=== PATIENT | female | born 1985 | race Caucasian/White ===

== ENCOUNTER → 2025-04-07 | Outpatient (CLI) | payer OTHER, SELFPAY ==
--- NOTE | 2025-04-07 08:35 | US_ITS ---
PROCEDURE: ABDOMEN LIMITED 04/07/2025 REASON FOR EXAM: RIGHT UPPER QUADRANT PAIN TECHNIQUE: Procedure Code: USABDL Modality: US Procedure: ABDOMEN LIMITED COMPARISON: None FINDINGS: Liver: Diffusely echogenic suggesting fatty infiltration. Hepatomegaly. The liver measures 19.6 cm. Gallbladder: Stone filled gallbladder. Sludge is seen within the gallbladder lumen. The gallbladder wall is not thickened. It measures 2.5 mm. Common bile duct: Normal measuring 3.9 mm . Pancreas: Normal Other: Visualized portions of the right kidney are unremarkable. No right upper quadrant ascites. US/Abdomen Limited IMPRESSION: Hepatomegaly and diffuse fatty infiltration of the liver. Stone filled gallbladder. Sludge is also seen in the gallbladder lumen. Reading Location: [place] [address]
--- OUTSIDE RECORDS SUMMARY | 2025-04-07 09:09 | XMS RPT_ITS | CCD ---
Author Organization [place] [employer] [facility] Care Team Providers Care Technical Advisor Name Role Phone Mariela Hernandez Referring Unavailable Mariela Hernandez Attending Unavailable Mariela Hernandez Primary Care Unavailable Problems Problem Classification Problem Date Documented Da te Episodic/Chronic Abdominal pain (1 source) Right upper quadrant pain; Translations: [Right upper quadrant pain] Onset: 03-31-2025 Episodic Results Test Name Value Interpretation Reference Range Facil itcleve CNOVon 04-26-2019 CNOV Office Visit (UCWSTR ) HOA BOWERS ([id number]) 1985 F Date Time Provider Department 04/26/19 12:15 PM ELVIR[facility] During your visit today, we recorded the following information about you: Temperature Pulse Respiration Blood pressure 98.3 degrees 76/minute 16/minute 96/64 Weight Last Period 86.6 kg 01/17/19 Elvira Arciniega MD 04/26/2019 12:55 PM Signed Patient presents with: Nausea: N/V, dizziness X2 wks HPI: Feeling dizzy for a couple weeks, worse this week. Spinning sensation. Feels like falling with bending or moving too fast. Has had a similar episode before dx as inner ear. Positive symptoms: nausea, vomiting, headache bilateral temples (throbbing, usually mild, was severe), mild nasal congestion, Negative symptoms: near syncope, double vision/change in vision, numbness, weakness, head injury, Cough, Fever, diarrhea, OTC: advil for headache She has had other similar headaches this summer. PAST MEDICAL HISTORY Diagnosis Date - NEGATIVE MEDICAL HISTORY PAST SURGICAL HISTORY Procedure Laterality Date - NONE MEDICATIONS: No current outpatient medications on file. No current facility-administered medications for this visit. ALLERGIES: ALLERGIES No Known Allergies VITALS: BP 96/64 Pulse 76 Temp 36.8 ?C (98.3 ?F) Resp 16 Wt 86.6 kg (191 lb) LMP 01/17/2019 SpO2 98% PHYSICAL EXAM: GEN: Pleasant, no acute distress, obese, Alevism dress, accompanied by her HEENT: PERRL, right eye esotropia, conjunctiva clear Ears: canals clear. TMs without erythema, bulge, or effusion Sinuses: pressure over sinuses Throat: moist mucous membranes, no erythema, no exudate Neck: supple, no thyromegaly, no lymphadenopathy HEART: regular rate and rhythm, no murmurs LUNGS: clear to auscultation, no wheezes or crackles, no increased WOB NEURO: Alert and oriented to person, place, and time. CN II-XII intact. DTR 2+/4. Normal strength. Normal gait. No tremor. ASSESSMENT/PLAN: 1. 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 Светлана Halpike symptomatic with right ear down. Eply maneuvers performed. - MECLIZINE 25 MG TABLET PRN Instructed to proceed to the ER for further evaluation if she has worsening headache, vision change, numbness, weakness, or worsening dizziness. Elvira Arciniega MD Referring Provider: SELF [[id number]] Allergies As of Date: 04/26/2019 (No Known Allergies) Date Reviewed: 04/26/2019 Reviewed by: Paige Rebollar MA - Fully Assessed Reason for Visit: Nausea [70] Cmt: N/V, dizziness X2 wks Primary Visit Diagnosis:Vertigo [R42] Order(s):meclizine (ANTIVERT) 25 mg tabTake 1 tablet by mouth every 6 hours as needed (dizziness) for up to 15 days.Disp: 20 tabletRfl: 0 Prescriptions as of 04/26/2019 Sig: MECLIZINE 25 MG TABLET Take 1 tablet by mouth every * Problem List As Of Date: 04/26/2019 (None) Prescriptions ordered this encounter Disp Refills Start End MECLIZINE 25 MG TABLET 20 t* 0 04/26/2019 05/11/2019 Route: ORAL Sig: Take 1 tablet by mouth every 6 hours as needed (dizziness) for up to 15 days. Encounter Status:Closed by ELVIRA ARCINIEGA MD on 04/26/19 Normal [facility] PROGRESSon 04-26-2019 PROGRESS HNO ID: [id number] Author: Elviar Arciniega Service: ? Author Type: Physician Type: Progress Notes Filed: 04/26/2019 12:55 PM Note Text: Patient presents with: Nausea: N/V, dizziness X2 wks HPI: Feeling dizzy for a couple weeks, worse this week. Spinning sensation. Feels like falling with bending or moving too fast. Has had a similar episode before dx as inner ear. Positive symptoms: nausea, vomiting, headache bilateral temples (throbbing, usually mild, was severe), mild nasal congestion, Negative symptoms: near syncope, double vision/change in vision, numbness, weakness, head injury, Cough, Fever, diarrhea, OTC: advil for headache She has had other similar headaches this summer. PAST MEDICAL HISTORY Diagnosis Date - NEGATIVE MEDICAL HISTORY PAST SURGICAL HISTORY Procedure Laterality Date - NONE MEDICATIONS: No current outpatient medications on file. No current facility-administered medications for this visit. ALLERGIES: ALLERGIES No Known Allergies VITALS: BP 96/64 Pulse 76 Temp 36.8 ?C (98.3 ?F) Resp 16 Wt 86.6 kg (191 lb) LMP 01/17/2019 SpO2 98% PHYSICAL EXAM: GEN: Pleasant, no acute distress, obese, Alevism dress, accompanied by her HEENT: PERRL, right eye esotropia, conjunctiva clear Ears: canals clear. TMs without erythema, bulge, or effusion Sinuses: pressure over sinuses Throat: moist mucous membranes, no erythema, no exudate Neck: supple, no thyromegaly, no lymphadenopathy HEART: regular rate and rhythm, no murmurs LUNGS: clear to auscultation, no wheezes or crackles, no increased WOB NEURO: Alert and oriented to person, place, and time. CN II-XII intact. DTR 2+/4. Normal strength. Normal gait. No tremor. ASSESSMENT/PLAN: 1. 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 [place] Halpike symptomatic with right ear down. Eply maneuvers performed. - MECLIZINE 25 MG TABLET PRN Instructed to proceed to the ER for further evaluation if she has worsening headache, vision change, numbness, weakness, or worsening dizziness. Elvira Arciniega MD Normal [facility] Encounters Encounter Date Encounter Type Care Provider Facility Start: 04-07-2025 ambulatory Mariela Hernandez Facility:[facility] Payers Date Payer Category Payer Self-pay 2025 Unknown [id number] Unknown [id number] Summary Purpose Family History No Family History Records FoundNo Family History Records Found Advance Directives No Advanced Directives Records FoundNo Advanced Directives Records Found Additional Source Comments INFORMATION SOURCE (unrecogn ized section and content) DATE CREATED AUTHOR 04/26/2019 [facility] DATE CREATED AUTHOR AUTHOR'S ORGANIZ ATION 04/02/2025 [facility] FOR RECORDS PERTAINING TO PATIENTS WHO ARE OR HAVE BEEN ENROLLED IN A CHEMICAL DEPENDENCY/SUBSTANCEABUSE PROGRAM, SOME INFORMATION MAY BE OMITTED. This clinical summary was aggregated from multiple sources. Caution should be exercised in using it in the provision of clinical care. This summary normalizes information from multiple sources, and as a consequence, information in this document may materially change the coding, format and clinical context of patient data. In addition, data may be omitted in some cases. CLINICAL DECISIONS SHOULD BE BASED ON THE PRIMARY CLINICAL RECORDS. [facility] [employer] [facility]. provides no warranty or guarantee of the accuracy or completeness of information in this document.
[2025-04-07 10:07] LABS: Hematocrit 39.7 % (37-47); Hemoglobin 13.7 g/dL (12.0-15.0); Mean Corp Hgb Conc 34.5 g/dL (32-36); Mean Corpuscular Volume 84.3 fL (81-99); Mean Platelet Vol. 8.7 fl (6.2-12.0); Platelet Count 292 K/mm3 (150-450); RBC Distribution Width CV 12.4 % (11.6-14.6); RBC Distribution Width SD 37.3 fl (35.1-43.9); Red Blood Count 4.71 M/mm3 (4.2-5.4); White Blood Count 7.7 K/mm3 (4.4-11.0)
[2025-04-07 11:24] LABS: AST(SGOT) 27 U/L (<=31); Alanine Aminotransfer ALT/SGPT 30 U/L (<=34); Albumin, Serum 4.4 g/dL (3.5-5.0); Alkaline Phosphatase 65 U/L (35-104); Anion Gap 10 (5-15); BUN 11 mg/dL (4-19); BUN/Creat Ratio 15.3 RATIO (10-20); Calcium,Total 9.0 mg/dL (7.6-11.0); Carbon Dioxide 23.9 mmol/L (21.0-32.0); Chloride 105 mmol/L (98-108); Globulin 3.2 g/dL (2.2-4.2); Glucose 100 mg/dL (70-99); Lipase 27 U/L (13-75); Potassium 3.9 mmol/L (3.3-5.1)
== END | disposition home or self-care (01) ==
PROVIDERS: PCP Family Medicine; Referring Provider Family Medicine; Visit Provider Family Medicine
DX: R10.11 Right upper quadrant pain (principal); Z86.32 Personal history of gestational diabetes
CPT/HCPCS: 36415; 76705; 80053; 83036; 83690; 85027

== ENCOUNTER 2025-05-07 10:54 | Day surgery (SDC) | payer SELFPAY, OTHER ==
[2025-05-07] VITALS (12 sets, daily range): BP systolic 109–153; BP diastolic 81–107; PULSE 75–81; RESP 16; TEMP 36.3–36.6; O2SAT 91–100; BMI 44.5
--- NOTE | 2025-05-07 11:08 | EKG12_ITS ---
Test Reason : PREOP Blood Pressure : */* mmHG Vent. Rate : 73 BPM Atrial Rate : 73 BPM P-R Int : 128 ms QRS Dur : 88 ms QT Int : 398 ms P-R-T Axes : 14 21 6 degrees QTcB Int : 438 ms Normal sinus rhythm Normal ECG No previous ECGs available Confirmed by HIREN COYLE, DARELL ([id number]), graphics editor JUANI BROWN ([id number]) on 05/11/2025 6:38:59 AM Referred By: Piyush Ramos Confirmed By: DARELL MARADIAGA MD
[2025-05-07 11:19] LABS: Internal QC Validated? YES +Cl - CLEAR BKGD; Pregnancy, Urine Negative Negative; Record Kit Lot#,Urine Preg 980607
[2025-05-07] MEDS: INDOCYANINE GREEN 3.75 MG in Syringe 1.5 ML 999 MG IV (11:25)
[2025-05-07] MEDS: Lactated Ringers 1,000 ML 15 ML IV (11:25)
--- NOTE | 2025-05-07 12:14 | HP.PCM_ITS ---
HPI - General General Date of Admission: 05/07/25 Date of Service: 05/07/25 Chief Complaint: Right upper quadrant pain HPI Narrative HOA BOWERS, is a 39 F who presents for elective robotic cholecystectomy. [facility] Medical History (Updated 04/23/25 @ 08:23 by Fadi Harris) Wears glasses Constipation Acid reflux Anxiety Depression Fatigue Home Medications ?Medication ?Instructions ?Recorded ?Last Taken ?Type Saccharomyces boulardii 250 mg 250 mg PO BID 04/13/25 Unknown History capsule (Daily Probiotic (S. boulardii)) cholecalciferol (vitamin D3) 25 25 mcg PO QDAY 5 Unknown History mcg (1,000 unit) capsule phytonadione (vitamin K1) 5 mg 5 mg PO QDAY 04/13/25 U nknown History tablet dim-sgs 1 tab PO DAILY 04/23/25 Unkn own History fluoxetine 20 mg capsule 20 mg PO DAILY 04/23/25 100 09/30 08:00 History methyl-factor 1 tab PO DAILY 04/23/25 Unkn own History vitamin a-d-k 1 tab PO DAILY 04/23/25 Unkn own History Allergy/AdvReac Type Severity Reaction Status Date / Time No Known Allergies Allergy Verified 05/07/25 11:24 Surgical History (Updated 04/23/25 @ 08:23 by Fadi Harris) No history of previous surgery Social History (Updated 04/13/25 @ 09:10 by Beryl Gordon) Smoking Status: Never smoker alcohol intake: never Vital Signs Vital Signs Vital Signs: 05/07/25 11:25 05/07/25 11:25 Temperature 97.6 F L Temperature Source Temporal Pulse Rate 81 Respiratory Rate 16 Respiratory Pattern Normal Blood Pressure 153/107 H Blood Pressure Mean 122 Blood Pressure Source Monitor Blood Pressure Position Semi-Fowlers Blood Pressure Location Left Forearm Pulse Ox 98 Oxygen Delivery Method Room Air Weight Weight: 220 lb 7.396 oz Body Mass Index (BMI) 44.5 Physical Exam Const alert, oriented x3 and no apparent distress Results Lab / Micro Data Labs: Laboratory Results - last 24 hr 05/07/25 11:10: Urine Test Negative Assessment & Plan Assessment/Plan (1) Abdominal pain: PLAN: Plan Patient is a 39-year-old female with symptomatic cholelithiasis. Robotic cho lecystectomy with ICG cholangiograms are planned. Surgery will begin momentarily Charges/Coding Visit Charges Inpatient E&M: 00743 Init Hosp L2
--- NOTE | 2025-05-07 12:20 | PCM.PRE.AN2 ---
ASA Classification* ASA Classification ASA Classification: 3 Assessment & Plan Anesthesia* Anesthesia Assessment Anesthesia Assessment: Discussed sedation and/or anesthesia options, risks, benefits, and alternatives with patient/parents/legal guardian/POA. Questions invited. The patient/parents/legal guardian/POA seems to understand and agrees to proceed with anesthesia plan. Reviewed the physical assessment, medical history, allergy history and patient home medications list prior to surgery/procedure/anesthetic and documented any changes. Performed airway and anesthesia risk assessments. Anesthesia Type Anesthesia Type: General History Source History Obtained from:: Patient and Chart Anesthesia Focused Assessment* Temperature: 97.6 F Pulse Rate: 81 Blood Pressure: 153/107 Respiratory Rate: 16 Pulse Ox: 98 Oxygen Delivery Method: Room Air Airway Assessment Mouth opens: >3 cm Mallampati Score: IV Teeth Condition: Intact Neck Range of motion (ROM): Limited ROM (Slight Decrease) Labs Anesthesia Preop lab: CBC WBC, (4.4-11.0) 7.7 K/mm3 04/07/25, 09: RBC, (4.2-5.4) 4.71 M/mm3 04/07/25, 09:09 Hgb, (12.0-15.0) 13.7 g/dL 04/07/25, 09:09 Hct, (37-47) 39.7 % 04/07/25, 09:09 Plt Count, (150-450) 292 K/mm3 04/07/25, 09:09 CHEMISTRY Potassium, (3.3-5.1) 3.9 mmol/L 04/07/25, 09: Sodium, (133-145) 139 mmol/L 04/07/25, 09: BUN, (4-19) 11 mg/dL 04/07/25, 09:09 Creatinine, (0.70-1.20) 0.69 mg/dL L 04/07/25, 09:09 Glucose, (70-99) 100 mg/dL H 04/07/25, 09:09 COAG Urine Test Negative Negative Today, 11:10 Pre-Assessment Diagnosis/Proposed Procedure Planned Operative Procedure(s): ROBOTIC CHOLECYSTECTOMY WITH ICG CHOLANGIOGRAM Anesthesia History 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 When Was Last Pacemaker Check QUESTION #4 FULL TEXT: You/Your Family Experience fever (hyperthermia) with Anesthesia Last Oral Intake Last Oral intake: Last Oral Intake NPO since 08:00 05/07/25 11:25 Meds taken in AM with sips of Yes 05/07/25 11:25 water? Meds patient instructed to take am of surgery Any additional information?: Yes Meds taken in AM with sips of water?: Yes PONV PONV - fuel oil clerk: PONV - fuel oil clerk Female Yes 04/23/25 08:17 HX of Motion Sickness No 04/23/25 08:17 HX of N/V After Surgery No 04/23/25 08:17 Non-Smoker Yes 04/23/25 08:17 Duration of Surgery greater Yes 04/23/25 08:17 than 60 minutes Number of Risk Factors 3 04/23/25 08:17 PONV Score Moderate Risk 04/23/25 08:17 Height & Weight Height & Weight: Anesthesia: Height & Weight Height 4 ft 11 in 05/07/25 11:25 Weight: 100 kg 05/07/25 11:25 Body Mass Index (BMI) 44.5 05/07/25 11:25 Respiratory Assessment Respiratory Assessment - fuel oil clerk: Respiratory Tract Infection Hx - fuel oil clerk Hx Respiratory Tract Infection No 04/23/25 08:17 STOP Sleep Apnea STOP Sleep Apnea - fuel oil clerk: STOP Sleep Apnea - fuel oil clerk Hx Hypertension No 04/23/25 08:17 Hx Sleep Apnea No 04/23/25 08:17 CPAP BIPAP Do you snore loudly (louder Yes 04/23/25 08:17 than talking or can be heard Do you often feel tired/ No 04/23/25 08:17 fatigued/ sleepy during daytime? Has anyone observed you stop No 04/23/25 08:17 breathing during sleep? STOP Results Negative 04/23/25 08:17 QUESTION #5 FULL TEXT : Do you snore loudly (louder than talking or can be heard through closed doors)? Tobacco Use History Tobacco Use History - fuel oil clerk: Tobacco Use History - fuel oil clerk Tobacco Use Smoking Status Never smoker 04/23/25 08:17 Hx Tobacco Use No 04/23/25 08:17 Years Smoking Packs Smoked per Day Smoking Cessation Date was within the last 15 years Hx Smoking Cessation Date Hx Smoking Cessation Counseling Hematologic Medial History Hematologic Hx - fuel oil clerk: Hematologic Medical Hx - manager transmission Hx of Blood Transfusion No 04/23/25 08:17 Hx of Transfusion in last 3 No 04/23/25 08:17 Months Date of Last Transfusion (if within last 3 months) Ever experience any problems No 04/23/25 08:17 with transfusion(s)? Specify any problems Hx of Preganancy in last 3 No 04/23/25 08:17 Months Nurse Filling Out Transfusion [id number] 04/23/25 08:17 & Questions: Date: 04/23/25 04/23/25 08:17 Time: 08:21 04/23/25 08:17 Patient unable to answer at this time (ie. confused, unrespo /Reproduction History /Reproductive History - fuel oil clerk: /Reproductive Hx- fuel oil clerk Hx Now No 04/23/25 08:17 Gestational Age (in weeks): EDC: Hx Hx Para Hx Section SAB No 04/23/25 08:17 Active Medications Active Medications: Current Medications Generic Name Dose Route Start Last Admin Trade Name Freq PRN Reason Stop Dose Admin Lactated Ringer's 1,000 mls @ 15 mls/hr 05/07/25 11:15 05/07/25 11:25 IV 15 mls/hr .Q48H ROSAURA Administration PFSH Medical History Wears glasses Constipation Acid reflux Anxiety Depression Fatigue Home Medications ?Medication ?Instructions ?Recorded ?Last Taken ?Type Saccharomyces boulardii 250 mg 250 mg PO BID 04/13/25 Unknown History capsule (Daily Probiotic (S. boulardii)) cholecalciferol (vitamin D3) 25 25 mcg PO QDAY 04/13/25 Unknown History mcg (1,000 unit) capsule phytonadione (vitamin K1) 5 mg 5 mg PO QDAY 04/13/25 Unknown History tablet dim-sgs 1 tab PO DAILY 04/23/25 Unknown History fluoxetine 20 mg capsule 20 mg PO DAILY 04/23/25 05/07/25 08:00 History methyl-factor 1 tab PO DAILY 04/23/25 Unknown History vitamin a-d-k 1 tab PO DAILY 04/23/25 Unknown History Allergy/AdvReac Type Severity Reaction Status Date / Time No Known Allergies Allergy Verified 05/07/25 11:24 Surgical History No history of previous surgery no surgical history Social History Smoking Status: Never smoker alcohol intake: never Review of Systems (Anesthesia) ROS Narrative System reviewed and no additional complaints, except as documented.
--- NOTE | 2025-05-07 12:30 | GALL_PTH ---
PATIENT: HOA BOWERS LOC: [facility] [place] U#:[id number] AGE/SX: 39/F ROOM: RE05/07/[address]: Dr. Piyush Ramos MD : 1985 BED: DIS: 05/07/2025 SPEC #: [id number] RECD: 05/08/25 08:57 STATUS: AQUILES REMaycol #: [id number] CHANDA: 05/07/25 12:[address]: Piyush Ramos DEPT: SURGICAL PATHOLOGY RECD BY: Yemi Ibarra ENTERED: 05/08/25 09:48 SP TYPE: JOJO FLORES DR: Dr. Mariela Hernandez MD Tissues: A - Gallbladder, NOS Procedures: Surgery Specimen Level III HEADER OPERATION: Robotic cholecystectomy PRE-OP DIAGNOSIS: Symptomatic cholelithiasis TISSUE SUBMITTED: A- Gallbladder MICROSCOPIC DIAGNOSIS A. Gallbladder, robotic cholecystectomy: * Chronic cholecystitis * Cholelithiasis MICROSCOPIC DESCRIPTION Slides are reviewed. GROSS DESCRIPTION A. Received in formalin labeled with the patient's name and date of . Designated as gallbladder is a 7.5 x 3.0 x 2.9 cm antunez-pink to yellow and bile-stained, markedly disrupted gallbladder, devoid of an identifiable cystic duct margin. In the container is a 4.6 x 1.2 cm aggregate of innumerable, irregular, bile-stained choleliths fragments. Opening reveals numerous, additional, irregular to multifaceted choleliths, 1.5 cm in greatest dimension. The intimal surfaces from antunez-white to green, fibrotic and granular with minimal, identifiable mucosa and a maximum wall thickness of 0.7 cm. Cholesterolosis is not present. Inventory Analyst sections are submitted in 1 cassette. OK 05/08/2025PT:[id number]
[2025-05-07] MEDS: Midazolam 2 MG/2 ML Syringe IV (12:50)
[2025-05-07] MEDS: Lidocaine 1% (5 ml sdv) 5 ML Vial IV (12:51)
[2025-05-07] MEDS: Bupiv/Epi 0.25% 30 ML Vial (14:50)
--- NOTE | 2025-05-07 14:54 | EX.PCM.DISCH ---
Discharge Instructions Diet Discharge Diet: Light diet - advance as tolerated Activity Discharge Activity: Return to Normal Activity May shower in (days): 1 Ice area for (Minutes): 30 Lifting Restrictions: No lifting pushing or pulling more than 20 pounds for 6 weeks Additional Activity Instructions:: Wear abdominal binder for comfort Dressing / Incision Call your doctor if your incision/area has: Continuous Slow Oozing, Sudden Increased Bleeding, Increased Pain/ Swelling, Increased Redness, Foul Smelling Discharge and Swelling at the incision site Call your doctor if you observe: Fever of 101 or Higher Cleanse incision/area with: Soap & Water Follow Up Care Please Follow Up With: Piyush Ramos MD Test Results: Test results from this visit will be discussed in further detail at your follow-up appointment, if applicable. Discharge Plan Admission Primary Reason for Your Visit: Robotic cholecystectomy Attending Provider: Piyush Ramos Primary Care Provider: Mariela Hernandez Instructions Print Language: Indonesian Discharge Orders/Prescriptions Prescriptions: New oxycodone 5 mg tablet 5 mg PO Q8H PRN (Reason: pain) 3 Days Qty: 12 0RF Continued cholecalciferol (vitamin D3) 25 mcg (1,000 unit) capsule 25 mcg PO QDAY Saccharomyces boulardii [Daily Probiotic (S. boulardii)] 250 mg capsule 250 mg PO BID phytonadione (vitamin K1) 5 mg tablet 5 mg PO QDAY vitamin a-d-k 1 tab PO DAILY methyl-factor 1 tab PO DAILY dim-sgs 1 tab PO DAILY fluoxetine 20 mg capsule 20 mg PO DAILY Other Ambulatory Orders: ,Urine (Routine) Timeframe: [id number] Facility: [facility] - Location: Laboratory Ordered By: Dr. Dionicio Ford Referrals / Follow Up: Mariela Hernandez MD [Primary Care Provider, Internal Medicine] Disposition Disposition (needs filled in before D/C Order can be placed): Home, Self Care
--- NOTE | 2025-05-07 14:59 | PCM.OPRPT ---
Procedures Digestive 40xxx-49xxx: [address] Laparo cholecystectomy/graph Operative Report (Standard) Operative Information Date of Procedure: 05/07/25 Pre-Operative Diagnosis: Chronic cholecystitis/cholelithiasis Post-Operative Diagnosis: Same Surgery/Procedure Performed: Robotic cholecystectomy with ICG cholangiograms combatant diver qualified: Yes Ring Spinner: [place] Tasks completed by welder first class: Closing, Trocar and Other Additional integration assistant?: No Type of Anesthesia: General and Local RN Documented Start/Stop Times: Operation Date: 05/07/25 12:30 Case Time Into Pre-Op 05/07/25 10:59 Anesthesia Start 05/07/25 12:44 Into Room 05/07/25 12:44 Out of Pre-Op 05/07/25 12:58 Procedure Start 05/07/25 13:08 Procedure Start Time: 13:08 Procedure Stop Time: 15:03 Select all DRAINS/GRAFTS/IMPLANTS that apply: None Special Medications: None Estimated Blood Loss: 20 mL Specimen collected: Yes Description of specimen(s) removed: Gallbladder and contents Description of surgery: The patient is a 39-year-old female who is seen in the office recently with chronic right upper quadrant pain. She was found on imaging to have the gallbladder completely filled with stones. She has had frequent attack for several years. I offered her robotic cholecystectomy as treatment. We discussed the details of the planned procedure including risk benefits and alternatives and she wished to proceed. She is brought to the operating today following informed consent. She was placed supine on the operative table with arms outstretched and arm boards. A general endotracheal anesthesia was induced. Once adequately sedated her arms were tucked at her sides. The abdomen is then prepped and draped in the usual sterile manner. A 5 mm incision was made just below the umbilicus which a 5 mm trocar was placed optically. This was placed without incident. The abdomen is then fully insufflated with CO2 gas. A 5 mm 0 degree scope was inserted. There were no signs of bowel or vascular injury. Next an 8 mm trocar was placed under direct visualization on the right side of the abdomen. Another 8 mm trocar was placed on the left side of the abdomen. Finally another 8 mm trocar was placed in the left upper quadrant. The original umbilical trocar was switched to an 8 mm trocar as well. The patient was placed in head up and rolled to the left positioning to improve visualization of the gallbladder. Once this was performed, the da Martin robot was then brought onto the operative field. It was docked and instrumentation was inserted. The gallbladder was identified and was reflected over the liver in a cephalad direction. The gallbladder was extremely firm and hard and completely packed with stones. The stones did not seem to be mobile at all. There was adhesed omentum to the undersurface of the gallbladder indicating chronic inflammation. Peritoneum on either side the gallbladder was then freed up to improve exposure and mobilization. Dissection was carried down towards the infundibulum. Retraction was fairly difficult due to the fact that the gallbladder was so densely packed with stones. The infundibulum the gallbladder was further exposed. ICG cholangiograms were utilized to identify the cystic duct.. The cystic duct was dissected circumferentially along with the artery. ICG was again utilized to confirm the cystic duct. Every attempt was made to dissect the lower aspect of the gallbladder free of the liver in order to establish a critical view of safety. This was accomplished. The cystic duct and cystic artery were then clipped proximally and distally. The cystic duct was then transected using electrocautery and a hook. Following this, the gallbladder was then bovied off the undersurface of the liver. Overall hemostasis was good. Once the gallbladder was free, it was placed into a bag and was brought out through the umbilical trocar site. Due to the numerous stones occupying the very large gallbladder, we did need to open up the skin incision somewhat. Also with the bag was opened up and the gallbladder stones were then retrieved just to get the gallbladder removed. Once the gallbladder was removed the fascia at the umbilical trocar site was closed using 0 PDS with the aid of the fascial closure device. About 3 sutures were placed into the fascia to ensure that this was appropriately closed. The right upper quadrant was irrigated copiously prior to the fascial closure. Hemostasis was excellent. No evidence of bowel or vascular injury was noted. No evidence of bile leak. There was some spillage of bile as the gallbladder was taken off the undersurface of the liver. All of this was appropriately suctioned out and irrigated. The remaining trocars were then opened up and insufflation was allowed to escape. Local anesthetic was injected into all the incisions. The incisions were then closed with 4-0 Vicryl. Skin glue was applied as dressing. She was awakened from anesthesia and taken to recovery in good condition. An abdominal binder was also placed. Surgical Findings: Chronic cholecystitis. Gallbladder completely packed with stones Complications Complications: No Admit VTE Documentation VTE Present on Admission: No VTE Mechan Device Prophylaxis: SCD's VTE Pharm Prophylaxis ordered?: No Reason prophylaxis not ordered: Treatment Not Indicated
--- NOTE | 2025-05-07 15:30 | PCM.POST.ANE ---
Anesthesia: Postop Eval I Current Vital Signs Temperature: 97.8 F Pulse Rate: 78 Blood Pressure: 120/85 Respiratory Rate: 16 Pulse Ox: 96 Oxygen Delivery Method: Nasal Cannula Oxygen Flow Rate (L/min): 3 Assessment Airway patent: Yes Spontaneous unlabored respirations: Yes Mental status: Asleep nausea: No Vomiting: No Anesthesia Complication: No Fluid Hydration Crystalloid volume administer (ml): 1,800 Total IV fluid infused: 1,800 Progress Note Anesthesia document: Postop Eval 1 completed: Yes
--- NOTE | 2025-05-07 16:14 | PCM.POSTANE2 ---
Anesthesia Postop Eval I Sum Postop Eval Completion status Anesthesia document: Postop Eval 1 completed: Yes Anesthesia Postop Eval I Summary Anesthesia Postop Eval I Summary: Anesthesia Postop Eval I: Assessment Summary Airway patent Yes 05/07/25 15:31 [email or web address] Spontaneous unlabored Yes 05/07/25 15:31 [email or web address] respirations Mental status Asleep 05/07/25 15:31 [email or web address] nausea No 05/07/25 15:31 [email or web address] Vomiting No 05/07/25 15:31 [email or web address] Anesthesia Postop Eval I: Fluid Summary Crystalloid volume administer 1,800 05/07/25 15:31 [email or web address] (ml) Colloids volume administered ( ml) Blood Product volume administered (ml) Total IV fluid infused 1,800 05/07/25 15:31 [email or web address] Anesthesia Postop Eval I: Summary Notes Anesthesia Complication No 05/07/25 15:31 [email or web address] Anesthesia Complication Comment: Post-operative progress note Anesthesia: Postop Eval II Evaluation Mental status: Awake Pain Level: 2 nausea: No Vomiting: No
== END 2025-05-07 17:49 | disposition home or self-care (01) ==
LOC: SDC 10:55 → AC 10:56
PROVIDERS: Anesthesiology; PCP Family Medicine; Referring Provider Surgery; Visit Provider Surgery
PROC: 0FT44ZZ Resection of Gallbladder, Percutaneous Endoscopic Approach (ICD-10-PCS; CPT 47562; principal; 2025-05-07 12:10)
DX: K80.10 Calculus of gallbladder with chronic cholecystitis without obstruction (principal); K21.9 Gastro-esophageal reflux disease without esophagitis; Z79.899 Other long term (current) drug therapy
CPT/HCPCS: 47562; S2900; 00790; 81025; 88304; 93005; J2405